=== PATIENT | female | born 1990 | race Caucasian/White ===

== ENCOUNTER → 2016-05-02 | Outpatient (CLI) | payer BC ==
[~2016-05-02] MED LIST: AMX500 PO; MULT-506 PO; PRENTAB26 PO
[2016-05-02 17:58] LABS: GTGD 50 Grams
[2016-05-10 18:39] LABS: AFP CONCENTRATION 51.2 NG/ML; AFP MULTIPLE OF MEDIAN 1.32; AFPTS GESTATIONAL AGE 16.3 WEEKS; AFPTS INSULIN DEP DIABETIC? NO; AFPTS MATERNAL WT 123 LBS; ALPHA-FETOPROTEIN RACE CAUCASIAN=W; EDD DETERMINED BY ULTRASOUND; ESTRIOL MULTIPLE OF MEDIAN 1.27; HISTORY OF NTD NO; INHIBIN A 155 PG/ML; INHIBIN A MOM 0.83; REPEAT SAMPLE? NO; hCG MULTIPLE OF MEDIAN 1.16
== END | disposition home or self-care (01) ==
LOC: C.LAB1850 15:48
PROVIDERS: ATTEND Obstetrics & Gynecology
DX: O09.212 Supervision of pregnancy with history of pre-term labor, second trimester (principal)

== ENCOUNTER → 2016-07-28 | Outpatient (CLI) | payer BC ==
[2016-07-28 12:19] LABS: HEMATOCRIT 33.8 % (37-47)
[2016-07-28 13:12] LABS: GTGD 50 Grams
== END | disposition home or self-care (01) ==
LOC: C.LAB1850 10:02
PROVIDERS: ATTEND Obstetrics & Gynecology
DX: O09.213 Supervision of pregnancy with history of pre-term labor, third trimester (principal); Z3A.00 Weeks of gestation of pregnancy not specified

== ENCOUNTER → 2016-07-28 | Outpatient (CLI) | payer BC ==
[2016-07-28 15:06] LABS: URINE APPEARANCE CLEAR (CLEAR); URINE BILIRUBIN NEG (NEG); URINE COLOR YELLOW; URINE EPITHELIAL CELL AUTO >30 /lpf (0-5); URINE NITRITE NEG (NEG); UROBILINOGEN NEG (NEG)
[2016-07-28 15:10] LABS: MANUAL MICROSCOPIC REQUIRED? NO; REVIEW REQ? NO
== END | disposition home or self-care (01) ==
LOC: C.LABSPEC 13:34
PROVIDERS: ATTEND Obstetrics & Gynecology
DX: O09.213 Supervision of pregnancy with history of pre-term labor, third trimester (principal); Z3A.00 Weeks of gestation of pregnancy not specified

== ENCOUNTER → 2016-09-22 | Outpatient (CLI) | payer BC | END | disposition home or self-care (01) | LOC: C.LABSPEC 13:47 | PROVIDERS: ATTEND Obstetrics & Gynecology | DX: O09.213 Supervision of pregnancy with history of pre-term labor, third trimester (principal); Z3A.00 Weeks of gestation of pregnancy not specified ==

== ENCOUNTER 2016-10-05 03:12 | Inpatient (IN) | payer BC ==
[~2016-10-05] VITALS: Ht 160 cm; Wt 68.0 kg
[~2016-10-05 03:12] MED LIST changes: -PRENTAB26 PO
[2016-10-05] MEDS ORDERED: LACTATED RINGER'S 1000ML 1,000 ML IV SCH ×2 (04:07→10:01)
[2016-10-05] MEDS ORDERED: LACTATED RINGER'S 1000ML 1,000 ML IV PRN (04:07)
[2016-10-05] MEDS ORDERED: PRENTAB26 PO (04:14)
[2016-10-05 04:17] VITALS: Ht 160 cm; Wt 68.0 kg
[2016-10-05] MEDS ORDERED: BUPIVACAINE 0.25% 30 ML VIAL ONE (04:36)
[2016-10-05] MEDS ORDERED: FENTANYL CITRATE INJ 50 MCG/1 ML 2 ML VIAL ONE (04:36)
[2016-10-05] MEDS ORDERED: FENTANYL 2MCG/ML ROPIV 1.25MG/ML 100ML BAG EPI ONE (04:36)
[2016-10-05] MEDS ORDERED: EpHEDrine SULFATE INJ 50 MG/ML AMP ONE (04:36)
[2016-10-05] MEDS ORDERED: NALOXONE HCL INJ 1 MG in SODIUM CHLORIDE 0.9% 1000ML 1,000 ML IV PRN (05:22)
[2016-10-05] MEDS ORDERED: LACTATED RINGER'S 1000ML 500 ML IV PRN (05:22)
[2016-10-05 05:29] LABS: HEMATOCRIT 32.5 % (37-47); MEAN CELL VOLUME 91.5 fL (80-100); MEAN CORPUSCULAR HEMOGLOBIN 31.3 pg (25-34); MEAN CORPUSCULAR HGB CONC 34.2 g/dl (32-36); MEAN PLATELET VOLUME 11.1 fL (7.4-10.4); PLATELET COUNT 220 K/uL (130-400); RED BLOOD COUNT 3.55 M/uL (4.2-5.4); WHITE BLOOD COUNT 16.96 K/uL (4.8-10.8)
[2016-10-05] MEDS ORDERED: ONDANSETRON INJ 2 MG/ML 2 ML VIAL IV PRN (05:30)
[2016-10-05] MEDS ORDERED: EpHEDrine SULFATE INJ 50 MG/ML AMP IV PRN (05:30)
[2016-10-05] MEDS ORDERED: NALBUPHINE HCL INJ 10 MG/ML AMP IV PRN (05:30)
[2016-10-05] MEDS ORDERED: NALOXONE HCL INJ 0.4 MG/1 ML VIAL/CARP IV PRN (05:30)
[2016-10-05] MEDS ORDERED: DiphenhydrAMINE HCL 50 MG/ML VIAL IV PRN (05:30)
[2016-10-05] MEDS: FENTANYL 2MCG/ML ROPIV 1.25MG/ML 100ML BAG EPI PRN ×2 (06:56→07:00)
--- NOTE | 2016-10-05 07:57 | Medical Student: [facility] ---
Med Student History & Physical Date of Service Oct 05, 2016. Chief Complaint Check Labor History of Present Illness Source: patient pt is a 26 yo F with IGNACIO of 10/15/2016 based on 1st trimester US at 38 and 4/7 weeks of GA presenting for labor check. She began having regular contractions about 4 hrs prior to coming to the hospital which were initially irregular but became regular approximately 30 minutes into having them. The contractions were 5 minutes apart when pt came in to the hospital at about 0330. has been followed by [facility] and pt received 17p shots during the due to history of . Pt feels contractions every 4 minutes. Reports good movement. There was no loss of fluid or bleeding on arrival at the hospital, and pt received AROM at the hospital. Pt already received an epidural for pain control. Blood type A positive, rubella immune, GBS negative, HBV negative, VDRL/RPR negative, C/G negative, 1 hr glucose 92. CBC (10/05/2016 0513) Hgb 11.1 Hct 32.5 OB History G1 - Date: 04/22/2011, wt: 6lbs 4 oz, . 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: 11, LMP: 01/03/2016, no abnormal pap hx Past Medical History infectious mononucleosis, splenomegaly, varicella, UTI Past Surgical History LASIK, wisdom teeth Social History Smoking Status: Never Smoker Alcohol Use: none Drug Use: none Marital Status: in relationship Occupational Status: employed Allergies Coded Allergies: No Known Allergies (Verified , UNK, 10/05/16) Home Medications Multivit/Min/Iron/Fol Ac/Pren ( Vitamin), 1 TAB PO DAILY Review of Systems Constitutional: No fever, No chills Eyes: No worsening of vision Respiratory: No cough, No shortness of breath Cardiovascular: No chest pain, No edema Abdomen: No pain, No nausea, No vomiting Genitourinary - Female: No dysuria Physical Exam Vital Signs: T: 37.0 c , BP: 125/69 , HR: 86 , RR: 18 General Appearance: WD/WN, no apparent distress Respiratory/Chest: chest non-tender, lungs clear, normal breath sounds, no respiratory distress Cardiovascular: regular rate, rhythm Abdomen / GI: non tender, soft Extremities: normal inspection, no calf tenderness, no pedal edema Skin: normal color, warm/dry cervix exam by Dr Starr shows / Monitoring External Monitor: heart rate baseline 135, moderate variability, accels present, no decels, category 1 Tocodynamometer: ctx every 4 minutes Laboratory Results 10/05/16 05:13 Test 10/05/16 05:13 Red Blood Count 3.55 M/uL (4.2-5.4) Mean Corpuscular Volume 91.5 fL (80-100) Mean Corpuscular Hemoglobin 31.3 pg (25-34) Mean Corpuscular Hemoglobin Concent 34.2 g/dl (32-36) RDW Standard Deviation 45.2 fL (36.4-46.3) RDW Coefficient of Variation 13.6 % (11.5-14.5) Mean Platelet Volume 11.1 fL (7.4-10.4) Assessment and Plan Pt is a 26 yo F at 38 and 4/7 weeks GA who presented today for labor check due to regular contractions. tracing category 1. - Admit to L and D - Monitor mother and fetus with toco and EFM - NPO except ice chips - AROM for labor induction - Consider pitocin - Expect
[2016-10-05] MEDS ORDERED: OXYTOCIN 30 UNITS/500ML NSS IV ONE (09:21)
[2016-10-05] MEDS ORDERED: BENZOCAINE 20% AER SPR 82.5 GM CAN EXT PRN (10:15)
[2016-10-05] MEDS ORDERED: DIPHTHERIA/TETANUS/PERTUSSIS 0.5 ML SYR/VIAL IM. ONE (10:15)
[2016-10-05] MEDS ORDERED: LANOLIN OINT EXT PRN ×2 (10:15)
[2016-10-05] MEDS ORDERED: HYDROCORTISONE ACETATE 25 MG SUPP PR PRN (10:15)
[2016-10-05] MEDS ORDERED: OXYCODONE/ACETAMINOPHEN 5-325 TAB PO PRN (10:15)
[2016-10-05] MEDS ORDERED: OXYTOCIN 30 UNITS/500ML NSS IV PRN (10:15)
[2016-10-05] MEDS ORDERED: ACETAMINOPHEN 325 MG TAB PO PRN (10:15)
[2016-10-05] MEDS ORDERED: SUPERCREAM 0.870 % 15GM JAR EXT PRN (10:15)
[2016-10-05] MEDS ORDERED: VARICELLA VIRUS VACCINE LIVE 1 VIAL SQ. ONE (10:15)
--- NOTE | 2016-10-05 10:24 | DELIVERY SUMMARY ---
DATE OF OPERATION: 10/05/2016 PREOPERATIVE DIAGNOSES: 1. Purdy intrauterine at term. 2. Onset of labor. 3. Group B strep negative. POSTOPERATIVE DIAGNOSES: Same. PROCEDURE: Spontaneous vaginal delivery. SURGEON: Dr. Shonda Banegas. DAIRY HELPER: None. ESTIMATED BLOOD LOSS: 350. COMPLICATIONS: None. DISPOSITION: Stable in labor and delivery. DESCRIPTION OF PROCEDURE: Slick is a 26-year-old 2, para 1, who presented at 38 and 4/7th weeks gestational age. She was admitted and managed in labor by my partner Dr. Starr and I assumed the care of the patient on the morning of October 05, where she was completed, but without urge to push. Once the urge to push arrived, she was coached through her second stage of labor and I was called for delivery. Shortly thereafter, she brought the head to and easily delivered the head followed by the shoulders of the with no difficulty and the remainder of the infant followed rapidly. The was placed on the maternal abdomen, where the cord was doubly clamped and cut by the father of the baby. The infant was noted to be vigorous and moving all 4 extremities equally. The placenta then delivered spontaneously and was found to be intact with a 3-vessel cord. Examination of the cervix, vagina, and perineum revealed no lacerations requiring repair. At the completion of the delivery, the fundus was firm, lochia was minimal and mother and were in stable condition having tolerated the delivery well. I attest to the content of the Intraoperative Record and any orders documented therein. Any exceptions are noted below. CORNEL
--- NOTE | 2016-10-05 10:57 | Medical Student: [facility] ---
Medical Student Delivery Note pt is a 26 yo F at 38 and 4/7 weeks of GA with IGNACIO of 10/15/2016 who presents for labor check due to contractions. She received an epidural for pain control and began pushing when completely dilated and effaced and felt the urge to. At 0953, a viable female with occiput anterior presentation was born. Baby was placed on mother's abdomen for cleaning and drying. Cord was doubly clamped and cut by father of baby. Cord blood was obtained. A three cord intact placenta was delivered with uterine massage and gentle downward traction. The mother suffered no lacerations. EBL 350cc. Hemostasis was achieved with uterine massage. Sponge count correct. Mother and baby are doing well and recovering.
--- NOTE | 2016-10-05 11:57 | Anesthesia Procedure Note ---
Anesthesia Epidural Removal Nt Date & Time Oct 05, 2016 at 11:56 Vital Signs Pain Intensity: 0.0 Notes Mental Status: alert / awake / arousable, participated in evaluation Nausea / Vomiting: adequately controlled Pain: adequately controlled Airway Patency, RR, SpO2: stable & adequate BP & HR: stable & adequate Hydration State: stable & adequate Neuraxial Anesthesia: was administered Anesthetic Complications: no major complications apparent, pt satisfied with anesthetic care Epidural: removed without complications, with tip intact
[2016-10-05 14:20] VITALS: BP 121/79; PULSE 82; TEMP 36.7
[2016-10-05] MEDS: IBUPROFEN 600 MG TAB PO PRN ×3 (15:14→23:55)
[2016-10-05 15:20] VITALS: BP 117/82; PULSE 87; TEMP 36.8
[2016-10-05 19:25] VITALS: BP 110/69; PULSE 87; TEMP 36.6
[2016-10-05] MEDS: DOCUSATE SODIUM 100 MG CAP PO SCH (20:30)
[2016-10-05 23:40] VITALS: BP 104/69; PULSE 86; TEMP 36.6
[2016-10-06 04:10] VITALS: BP 106/69; PULSE 78; TEMP 36.7
[2016-10-06] MEDS: IBUPROFEN 600 MG TAB PO PRN ×2 (04:13→08:10)
--- NOTE | 2016-10-06 06:33 | Medical Student: [facility] ---
Med Student MANAGEMENT CONSULTANT Progress Nt Date of Service Oct 06, 2016. Subjective conversation w/ patient Ambulation: ambulating normally Voiding: no voiding problems Diet Tolerance: Regular Diet Lochia: Small Feeding Type: Breast Feeding Notes: taking motrin Review of Systems Constitutional: No fever, No chills Respiratory: No cough, No shortness of breath Cardiac: No chest pain Abdomen: No pain, No nausea, No vomiting Objective Vital Signs Date Time Temp Pulse Resp B/P (MAP) Pulse Ox O2 Delivery O2 Flow Rate FiO2 10/06/16 04:10 36.7 78 16 106/69 (81) Room Air 10/05/16 23:40 36.6 86 16 104/69 (81) Room Air 10/05/16 23:40 Room Air 10/05/16 19:25 36.6 87 16 110/69 (83) Room Air 10/05/16 15:20 36.8 87 18 117/82 (94) Room Air 10/05/16 15:20 Room Air 10/05/16 14:20 36.7 82 20 121/79 (93) Room Air 10/05/16 13:20 Room Air Physical Exam General Appearance: WELL-APPEARING, WD/WN, NO APPARENT DISTRESS Respiratory/Chest: chest non-tender, lungs clear, normal breath sounds Cardiovascular: regular rate, rhythm Abdomen: non tender, soft Fundus: Firm, Non-Tender, Relation to Umbilicus (at umbilicus) Extremities: non-tender, no calf tenderness, + pedal edema Laboratory Results Last 24 Hours Test 10/06/16 04:44 Assessment and Plan Post- Day Number: 1 Continue Routine Care: pt is a 26 yo F PPD#1 s/p - vitals reviewed and stable - continue routine post vaginal delivery care - pre-delivery hgb 11.1 post delivery hgb pending. Continue to monitor for bleeding. - encourage and ambulation - pain control with PRN motrin.
[2016-10-06 07:14] LABS: HEMATOCRIT 30.5 % (37-47)
[2016-10-06 07:41] VITALS: BP 95/63; PULSE 84; TEMP 36.6; O2SAT 98
[2016-10-06 07:50] VITALS: BP 114/77; PULSE 72; TEMP 36.6
--- NOTE | 2016-10-06 07:53 | Progress Note ---
Subjective Oct 06, 2016. Subjective conversation w/ patient, physical exam Ambulation: ambulating normally Voiding: no voiding problems Passing Gas: Yes Diet Tolerance: Regular Diet Lochia: Moderate Feeding Type: Breast Feeding Review of Systems Constitutional: No fever, No chills Cardiac: No chest pain Abdomen: No nausea, No vomiting Objective Vital Signs Date Time Temp Pulse Resp B/P (MAP) Pulse Ox O2 Delivery O2 Flow Rate FiO2 10/06/16 07:41 36.6 84 20 95/63 (74) 98 Room Air 10/06/16 04:10 36.7 78 16 106/69 (81) Room Air 10/05/16 23:40 36.6 86 16 104/69 (81) Room Air 10/05/16 23:40 Room Air 10/05/16 19:25 36.6 87 16 110/69 (83) Room Air 10/05/16 15:20 36.8 87 18 117/82 (94) Room Air 10/05/16 15:20 Room Air 10/05/16 14:20 36.7 82 20 121/79 (93) Room Air 10/05/16 13:20 Room Air Physical Exam General Appearance: WELL-APPEARING, NO APPARENT DISTRESS Respiratory/Chest: no respiratory distress, no accessory muscle use Cardiovascular: no edema Abdomen: non tender, soft Fundus: Firm Extremities: no calf tenderness Laboratory Results Last 24 Hours Test 10/06/16 06:41 Hemoglobin 10.4 g/dL Hematocrit 30.5 % Assessment and Plan Post- Day#: 1 Continue Routine Care: PPD1 , doing well, routine care
--- NOTE | 2016-10-06 07:59 | Discharge Instructions ---
Discharge Instructions Date of Service Oct 06, 2016. Admission Reason for Admission: Check Labor Discharge Discharge Diagnosis / Problem: Vaginal delivery Discharge Goals Goal(s): Routine recovery after delivery Activity Recommendations Activity Limitations: per Instructions/Follow-up section . Instructions / Follow-Up Instructions / Follow-Up ACTIVITY RECOMMENDATIONS: * Gradual return to full activity over the next 2-3 weeks. * No lifting - nothing heavier than baby over the next 2-3 weeks. * Do not engage in vigorous exercise, sexual activity or sports until cleared by your physician. * Do not drive or operate any motorized equipment until cleared by your physician. * You may shower/bathe daily. MEDICATIONS: For discomfort or pain, you may use Acetaminophen (Tylenol), Ibuprofen (Advil), or Naproxen (Aleve) following the package directions. For constipation you may use Colace following the package directions. BREAST CARE: If you are not breast feeding: * Wear a supportive bra 24 hours a day for one to two weeks. * Avoid stimulating your breasts and nipples as much as possible during the first few weeks after delivery. * When taking a shower, have the warm water hit your back, not breasts. * When your breasts feel full, apply ice packs. Usually three to four times a day helps ease the discomfort. * Take a mild pain medication (Tylenol / Motrin) when you are uncomfortable. If breast feeding: * Use breast milk to lubricate nipples. Lansinoh cream may be used for sore nipples. You do not need to remove cream prior to breast feeding. If using a different brand of cream, check the label for directions regarding removal of cream prior to nursing. * Wear a supportive bra. * If having problems with breasts or breast feeding, call a health consultant or your health care provider. EPISIOTOMY CARE: After delivery, if you have an episiotomy (stitches), the following steps will ease discomfort and aid healing. * For the first 24 hours after delivery, place ice packs next to your episiotomy to help reduce swelling. * After the first 24 hour-period, sitz baths, either portable or in the tub, are suggested. A shower with a shower arm sprayed over the episiotomy may be comforting. * Shirley care should be done after each voiding and bowel movement. Squirt warm water from a plastic bottle over the perineum (region of the body between the anus and urinary opening) and pat dry. * Use Dermoplast to ease discomfort. Shake container. [place] directly over the episiotomy. Place a Tucks on a clean sanitary pad next to your episiotomy. SPECIAL CARE INSTRUCTIONS: When you are discharged from the hospital, it is important for you to follow the instructions listed below: * During the first week at home, you should be able to care for yourself and your baby. In addition, the usual light household activities are encouraged. * Limit your activities to the way you feel. Do not try to clean the house or move furniture. Be sensible. * If you actively engage in sports and have done so up until the time of your delivery, you may resume these activities as soon as you feel able. This may take up to one month or even longer. Use good judgment. * Continue to take your vitamins for at least six weeks after the of your baby. * Your diet need not be limited unless you were on a special diet before your delivery. Breast-feeding mothers need around 2500 calories per day and at least 64-80 ounces of fluid per day (8 to 10 glasses). * You should eat foods from the four major food groups. Crash diets or fad diets are to be avoided. Eating lean meats, fresh fruits and vegetables, low-fat dairy products, high fiber foods and a regular exercise program, will help you get back to your pre- weight without putting your health at risk. * Constipation is sometimes a problem after delivery. Take a mild laxative as needed. If breast feeding, Milk of Magnesia is acceptable to use. You may use a suppository or Fleets enema if no episiotomy. * A daily shower or tub bath is suggested. Be sure to thoroughly and gently dry the perineum. * A bloody vaginal discharge will usually continue until around four weeks post . A small amount of bleeding may continue for as long as six weeks. Vaginal discharge changes from the bright red bleeding after delivery to pink then brownish and finally yellowish-pink before becoming white and disappearing. * Bleeding may increase with activity. Your first period may come in 4-8 weeks. If you are breast feeding, your period may be delayed even longer. * [place] (sex) can begin whenever both you and your partner feel comfortable and do not have any form of genital infection. It is recommended that you wait at least six weeks for internal and external healing to occur. If you have questions, please talk to your health care practitioner. A condom should be used to prevent infection and . * Foreplay, gentle intercourse and lubrication is very important the first several times to prevent pain. A water-based lubricant such as K-Y jelly or Astroglide may be used. * If you have RH negative blood and your baby is RH positive, you will receive RHOGAM by injection prior to discharge. The nurse will give you a card to keep with you that has the date and place that you received RHOGAM after delivery. * During your care, you had a Rubella screen done to check for the presence of rubella antibodies in your blood. If your test was negative, you will receive a Rubella vaccine prior to discharge. This vaccine may cause a fever, soreness at the injection site and flu-like symptoms. If these symptoms persist, notify your health care practitioner. is not advised for one month after a Rubella vaccine. * Verbalizes understanding of car seat law as reviewed with patient nursing. * Car Seat hand-out given and reviewed with patient by nursing. * Shaken baby information reviewed with patient by nursing. Call you doctor if: * Heavy bleeding (saturating several pads an hour) or passing clots the size of your fist. * A fever >101 degrees F (38.3 degrees C) on two occasions four hours apart and /or chills. * Unusual pain in the pelvic or vaginal areas. * "Baby Blues" lasting longer than two weeks. If you have any questions or concerns, call your health care practitioner at . FOLLOW UP VISIT: * Please call the office at to schedule a 6 week examination. It is important you keep this appointment. It is important for you to make arrangements for either yearly or twice yearly check-ups thereafter. Current Hospital Diet Patient's current hospital diet: Regular OB Diet Discharge Diet Recommended Diet: Regular Diet Pending Studies Studies pending at discharge: no Medical Emergencies . Who to Call and When: Medical Emergencies: If at any time you feel your situation is an emergency, please call 911 immediately. . Non-Emergent Contact Non-Emergency issues call your: Primary Care Provider . . "Provider Documentation" section prepared by Shonda Banegas. . VTE Core Measure Inpt VTE Proph given/why not?: Treatment not indicated
[2016-10-06] MEDS ORDERED: PRENATAL VITAMIN TAB PO SCH (08:00)
[2016-10-06] MEDS: DOCUSATE SODIUM 100 MG CAP PO SCH (08:10)
[2016-10-06 10:15] VITALS: BP_DIAS 77; PULSE 72; TEMP 36.6
== END 2016-10-06 10:45 | disposition home or self-care (01) | DRG 775 ==
LOC: C.OPB 03:12 → C.LD 03:12 → C.OPB 04:09 → C.OBG 13:32
PROVIDERS: ADMIT Obstetrics & Gynecology; ATTEND Obstetrics & Gynecology
PROC: 10E0XZZ Delivery of Products of Conception, External Approach (ICD-10-PCS; principal; 2016-10-05)
DX: O99.02 Anemia complicating childbirth (principal); Z3A.38 38 weeks gestation of pregnancy; Z37.0 Single live birth